=== PATIENT | male | born 1955 ===

== ENCOUNTER 2024-07-14 12:23 | Day surgery (SDC) | payer OTHER ==
[~2024-07-14] VITALS: Ht 180.3 cm; Wt 126.0 kg
[~2024-07-14 12:23] MED LIST: Balanced Salt Epinephrine Irrigation Solution 500 mL IR SCH; Lidocaine HCl/Pf 1% 5 ML VIAL XX SCH; Moxifloxacin HCL 0.5 MG/0.1 ML 0.4MLSYR RIGHTEYE SCH; PHENYLEPHRINE\\TROPICAMIDE\\TETRACAINE OPHTHALMIC DILATING SOLN RIGHTEYE PRN; Povidone-Iodine 450 DROP/30 ML Solution ONE; Povidone-Iodine 450 DROP/30 ML Solution RIGHTEYE SCH; Tetracaine HCl/Pf 0.5% Opth Soln 4 ml ONE; Triamcinolone Inj Susp 40 MG / ML 1ML Vial INJ SCH; Triamcinolone Inj Susp 40 MG / ML 1ML Vial ONE
[2024-07-14] MEDS ORDERED: NS 500 ML IV ONE (14:02)
[2024-07-14] MEDS ORDERED: Aspir 8181 MG PO (14:05)
[2024-07-14] MEDS ORDERED: LOSA50 PO (14:06)
[2024-07-14] MEDS ORDERED: METF500 PO (14:06)
[2024-07-14] MEDS ORDERED: OMEP20ER (14:06)
[2024-07-14] MEDS ORDERED: MIRT15ST PO (14:07)
[2024-07-14] MEDS ORDERED: ADHD MEDICATION (14:11)
[2024-07-14] MEDS ORDERED: Midazolam HCl 1MG / ML 2ML Vial ONE (14:11)
--- NOTE | 2024-07-14 14:23 | NUR ---
[facility] DISCUSSED WOUND TO R HAND WITH DR MEJÍA, PER PATIENT HE CUT OFF THE END OF HIS FINGER (R HAND 2ND FINGER) LAST THURSDAY AND WENT TO URGENT CARE WHERE THEY PUT NITROUS OXIDE ON IT AND IT IS SCABBED OVER AND BLACK. PER DR MEJÍA OK TO PROCEED. 1400: PER PATIENT HE HAS MANY MORE MEDICATIONS THAT HE TAKES THAT ARE NOT IN HIS CHART AND THAT HE DOES NOT REMEMBER THE NAMES OF.
[2024-07-14] MEDS ORDERED: Ondansetron HCl 2 MG / ML 2ML Vial ONE (14:46)
[2024-07-15] MEDS ORDERED: Lidocaine HCl/Pf 1% 5 ML VIAL XX SCH (06:00)
[2024-07-15] MEDS ORDERED: PHENYLEPHRINE\\TROPICAMIDE\\TETRACAINE OPHTHALMIC DILATING SOLN RIGHTEYE PRN (06:00)
[2024-07-15] MEDS ORDERED: Povidone-Iodine 450 DROP/30 ML Solution RIGHTEYE SCH (06:00)
[2024-07-15] MEDS ORDERED: Moxifloxacin HCL 0.5 MG/0.1 ML 0.4MLSYR RIGHTEYE SCH (06:00)
[2024-07-15] MEDS ORDERED: Triamcinolone Inj Susp 40 MG / ML 1ML Vial INJ SCH (06:00)
[2024-07-15] MEDS ORDERED: Balanced Salt Epinephrine Irrigation Solution 500 mL IR SCH (06:00)
== END 2024-07-14 15:02 | disposition home or self-care (01) ==
LOC: ORSCSDS 12:23
PROVIDERS: Ophthalmology
PROC: 08RJ3JZ Replacement of Right Lens with Synthetic Substitute, Percutaneous Approach (ICD-10-PCS; principal; 2024-07-14 14:00)
DX: E11.36 Type 2 diabetes mellitus with diabetic cataract (principal); H25.813 Combined forms of age-related cataract, bilateral; K21.9 Gastro-esophageal reflux disease without esophagitis; G47.33 Obstructive sleep apnea (adult) (pediatric); E66.01 Morbid (severe) obesity due to excess calories; Z68.38 Body mass index [BMI] 38.0-38.9, adult; Z79.82 Long term (current) use of aspirin; Z79.84 Long term (current) use of oral hypoglycemic drugs; Z79.899 Other long term (current) drug therapy
CPT/HCPCS: 82947; J2250; J2405; J3301; V2632

== ENCOUNTER 2024-07-21 12:18 | Day surgery (SDC) | payer OTHER ==
[~2024-07-21] VITALS: Ht 180.3 cm; Wt 127.7 kg
[~2024-07-21 12:18] MED LIST changes: +ADHD MEDICATION; +Aspir 8181 MG PO; +LOSA50 PO; +METF500 PO; +MIRT15ST PO; +Moxifloxacin HCL 0.5 MG/0.1 ML 0.4MLSYR LEFTEYE SCH; -Moxifloxacin HCL 0.5 MG/0.1 ML 0.4MLSYR RIGHTEYE SCH; +NS 500 ML IV ONE; +OMEP20ER; +PHENYLEPHRINE\\TROPICAMIDE\\TETRACAINE OPHTHALMIC DILATING SOLN LEFTEYE PRN; -PHENYLEPHRINE\\TROPICAMIDE\\TETRACAINE OPHTHALMIC DILATING SOLN RIGHTEYE PRN; +Povidone-Iodine 450 DROP/30 ML Solution LEFTEYE SCH; -Povidone-Iodine 450 DROP/30 ML Solution RIGHTEYE SCH
[2024-07-21] MEDS ORDERED: PROP10 (13:46)
[2024-07-21] MEDS ORDERED: NS 500 ML IV ONE (13:53)
[2024-07-21] MEDS ORDERED: Midazolam HCl 1MG / ML 2ML Vial ONE ×2 (14:13→14:23)
[2024-07-21] MEDS ORDERED: FentaNYL Citrate 50 MCG/ML 2 ML Injection ONE (14:13)
--- NOTE | 2024-07-21 14:53 | NUR ---
07/21/24 1453 Autumn Nolan CALLED [facility]. WAITING TO RECEIVE CALL BACK
== END 2024-07-21 15:08 | disposition home or self-care (01) ==
LOC: ORSCSDS 12:18
PROVIDERS: Ophthalmology
PROC: 08RK3JZ Replacement of Left Lens with Synthetic Substitute, Percutaneous Approach (ICD-10-PCS; principal; 2024-07-21 14:00)
DX: E11.36 Type 2 diabetes mellitus with diabetic cataract (principal); H25.812 Combined forms of age-related cataract, left eye; H52.202 Unspecified astigmatism, left eye; Z96.1 Presence of intraocular lens; I10 Essential (primary) hypertension; G47.33 Obstructive sleep apnea (adult) (pediatric); Z79.899 Other long term (current) drug therapy; Z87.891 Personal history of nicotine dependence; Z79.84 Long term (current) use of oral hypoglycemic drugs
CPT/HCPCS: 82947; J2250; J3010; J3301; J7040; V2632